=== PATIENT | female | born 1965 | race Caucasian/White ===

== ENCOUNTER 2019-02-14 15:39 | Emergency (ER) | payer MEDICAID, OTHER ==
[2019-02-14 15:50] VITALS: BP 119/79; PULSE 88; RESP 20; TEMP 98.3; O2SAT 98
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
== END 2019-02-14 16:44 | disposition home or self-care (01) ==
LOC: C.ER 15:39
DX: Z00.8 Encounter for other general examination (principal); F32.9 Major depressive disorder, single episode, unspecified